=== PATIENT | male | born 1980 | race Caucasian/White ===

== ENCOUNTER → 2020-05-02 15:39 | Outpatient (BNVA) | payer OTHER, SELFPAY | PROVIDERS: Visit Provider Urology ==

== ENCOUNTER 2022-12-09 13:30 | Outpatient (AMB) | payer OTHER, SELFPAY ==
--- NOTE | 2022-12-09 13:32 | MHC.OFFWIV ---
Intake Vital Signs 12/09/22 13:33 Height 6 ft Weight 214 lb 6 oz BMI 29.1 BP 126/76 Blood Pressure Location Rt brachial Position Sitting Pulse 62 Pulse Source Pulse Oximeter Pulse Oximetry (%) 97 Oxygen Delivery Method Room Air Intake Visit Reasons: congestion,blocked ear Intake Note: Patient is here with head congestion, blocked ears for about a month. Patient Tobacco Use Status: Never used Tobacco Allergies No Known Allergies Allergy (Verified 12/09/22 13:35) Do you need a note to return to daycare/school/sports/work: Yes HPI congestion,blocked ear HPI Details Nasal?congestion?and?ear?congestion?for?about?a?month. Had?tried?Zyrtec?which?had?helped?but?he?ran?out?of?it Had?congestion?got?worse?and?he?ended?up?having?some?right?ear?pain.??This?has?resolved Still?has?significant?nasal?congestion.??No?sore?throat.??No?fevers?or?chills. [facility] Social History Patient Tobacco Use Status: Never used Tobacco Review of Systems Const Denies chills, Denies fatigue, Denies fever(s), Denies headache(s) and Denies weakness ENT Details: Nasal?congestion Mild?decreased?hearing?on?the?right?but?no?pain?anymore Denies dizziness and Denies headache(s) Card Denies chest pain, Denies lightheadedness, Denies dyspnea and Denies other (Palpitations) Resp Denies cough, Denies dyspnea, Denies wheezing and Denies other ( shortness of breath) Musc Denies numbness and Denies tingling Neuro Denies dizziness, Denies headache(s), Denies numbness, Denies tingling, Denies paresthesias and Denies weakness Psych Denies anxiety and Denies depression Endo Denies fatigue Aller/Immun Denies wheezing Physical Exam Vital Signs: Last Vital Signs Pulse 62 12/09/22 13:33 BP 126/76 12/09/22 13:33 Pulse Ox 97 12/09/22 13:33 Oxygen Delivery Method Room Air 12/09/22 13:33 BMI result Body Mass Index 29.1 Const General: no acute distress and well developed Nutritional Appearance: well nourished Orientation/consciousness: patient oriented x3 HEENT Other: Nasal?congestion.??Mild?discharge. No?sinus?TTP Right?TM?with?mild?sclerosis?but?no?fluid?and?no?erythema. Left?TM?normal Posterior?nasopharynx?normal Head: Yes normocephalic and Yes atraumatic Eyes General: appearance normal, both eyes and all related structures Pupils: Equal, round and reactive pupils present EOM: EOMs intact bilaterally Resp Effort & Inspection: normal respiratory effort Auscultation: clear to auscultation bilaterally Cardio Rate: regular rate Rhythm: regular rhythm Heart sounds: S1 normal heart sound present, S2 normal heart sound present, no gallops, no murmurs and no rubs Neuro General: patient oriented x3 and gait normal Cranial nerves: Yes Equal, round and reactive pupils present Psych Affect: normal affect Assessment & Plan Assessment & Plan (1) Allergic sinusitis: Code(s): J30.9 - Allergic rhinitis, unspecified Plan: Allergic?sinusitis. Likely?has?had?a?resolved?right?ear?infection?and?should?improve If?hearing?does?not?improve?he?can?return?to?office Resume?Zyrtec Trial?nasal?steroid Can?use?pseudoephedrine?for?severe?flare-up Medications: New fluticasone propionate 50 mcg/actuation (Flonase Allergy Relief) administer into each nostril 1 spray intranasal Q12H 16 grams 2RF 30 days cetirizine (All Day Allergy (cetirizine)) 10 mg PO DAILY PRN 30 tabs 1RF allergy symptoms 30 days Coding Level of Care Code Est Pt Level 3 (16990) Diagnoses Allergic sinusitis J30.9
[2022-12-09 13:33] VITALS: BP 126/76; PULSE 62; O2SAT 97; BMI 29.1
== END 2022-12-09 14:00 | disposition home or self-care (01) ==
PROVIDERS: Visit Provider Family Medicine
DX: J30.9 Allergic rhinitis, unspecified (principal)
CPT/HCPCS: 99213

== ENCOUNTER 2023-02-04 15:44 | Outpatient (AMB) | payer OTHER, SELFPAY ==
--- NOTE | 2023-02-04 15:49 | A.OFFPC_ITS ---
Vital Signs 02/04/23 15:53 Height 6 ft Weight 215 lb BMI 29.2 BP 120/80 Blood Pressure Location Rt brachial Position Sitting Pulse 57 Pulse Source Pulse Oximeter Pulse Oximetry (%) 97 Oxygen Delivery Method Room Air Intake Visit Reasons: Annual PE Intake Note: Patient here for physical exam. No new issues or concerns. Allergies No Known Allergies Allergy (Verified 02/04/23 15:54) Medication List - Last Reconciled 02/04/23 by MISHEL PickettLUZ ELENA sertraline 50 mg PO DAILY Tobacco use date assessed: 02/04/23 Dental Screening Dental Screen Date: 02/04/23 Did you have a dental visit in the last 12 months?: Yes Did you have a dental problem in the last 6 months where you did not have access to dental care?: No Was dental information given to patient?: Patient has dentist HPI Annual PE HPI Details New pt is here for a PE. Will order labs. Pt has a significant family hx of prostate cancer. Will order PSA. Denies any symptoms including dribbling with urination, weak stream, and frequent nocturia. Has not seen a provider in approx 12 years [facility] Social History Housing: Apartment Patient Tobacco Use Status: Never used Tobacco e-Cigarette/Vaping Use: Never Used service: No Current occupational status: employed Current occupational exposures/hazards: Yes Cognitive needs: No Hearing needs: No Vision needs: No Questionnaire PHQ-9 Over the last 2 weeks, how often have you been bothered by any of the following problems? 1. Little interest or pleasure in doing things: not at all 2. Feeling down, depressed, or hopeless: not at all 3. Trouble falling or staying asleep, or sleeping too much: not at all 4. Feeling tired or having little energy: not at all 5. Poor appetite or overeating: not at all 6. Feeling bad about yourself - or that you are a failure or have let yourself or your family down: not at all 7. Trouble concentrating on things, such as reading the newspaper or watching television: not at all 8. Moving or speaking so slowly that other people could have noticed. Or the opposite - being so fidgety or restless that you have been moving around a lot more than usual: not at all 9. Thoughts that you would be better off or of hurting yourself in some way: not at all Total score: 0 Depression Screening Interpretation: Negative Depression Screening Done: Yes 24685 - PHQ-9 Billing: Yes Source: Developed by Drs. Glen Carlisle, Carola Muse, Ruben Carroll and colleagues, with an educational isiah from [employer]. Thrive Questionnaire Date Thrive assessed: 02/04/23 I am a: Patient What is your living situation today?: I have a steady place to live Within the past 12 months, did the food you bought not last and you didn't have the money to get more?: Never true Within the past 12 months, did you worry whether your food would run out before you got money to buy more?: Never true Do you have trouble paying for medicines?: No Do you have trouble getting transportation to medical appointments?: No Do you have trouble paying your heating and electricity bill?: No Do you have trouble taking care of your child, family member or friend?: No Do you have trouble with day-to-day activities such as bathing, preparing meals, shopping, managing finances, etc.?: No Are you currently unemployed and looking for a job?: No Are you interested in more education?: No Currently or been in a relationship where the following occur: no concerns reported AUDIT C Alcohol Use Questionnaire (AUDIT-C) 1. How often do you have a drink containing alcohol?: 2-3 times a week 2. How many drinks containing alcohol do you have on a typical day when you are drinking?: 1 or 2 3. How often do you have six or more drinks on one occasion?: Never Total Score: 3 Score Reviewed/Action Taken: No CHERELLE-7 AMB Questionnaire CHERELLE-7 Date CHERELLE - 7 assessed: 02/04/23 Feeling nervous, anxious, or on edge: 1 = Several days Not being able to stop or control worryin = Not at all Worrying too much about different things: 0 = Not at all Trouble relaxin = Not at all Being so restless that it is hard to sit still: 0 = Not at all Becoming easily annoyed or irritable: 0 = Not at all Feeling afraid as if something awful might happen: 0 = Not at all Total CHERELLE-7 score (0-4 normal; 5-9 mild; 10-14 moderate; 15-21 severe): 1 Source: Developed by Drs. Glen Carlisle, Carola Muse, Ruben Carroll and colleagues, with an educational isiah from [employer]. CHERELLE-7 Assessment Billing CHERELLE-7 Assessment Tool: CHERELLE-7 Assessment 21141 Review of Systems Const Denies chills and Denies fever(s) Eyes Denies blurry vision ENT Denies vertigo, Denies dizziness and Denies sore throat Card Denies chest pain at rest, Denies chest pain with activity, Denies diaphoresis, Denies dyspnea and Denies dyspnea on exertion Resp Denies cough, Denies dyspnea, Denies dyspnea on exertion and Denies wheezing GI Denies abdominal pain, Denies melena, Denies hematochezia, Denies constipation, Denies diarrhea and Denies loose stools Denies hematuria Musc Denies numbness and Denies tingling Skin/Breast Denies lesions Neuro Denies vertigo, Denies dizziness, Denies numbness and Denies tingling Psych Denies anxiety, Denies depression, Denies homicidal ideation, Denies suicidal ideation and Denies other (substance abuse) Aller/Immun Denies wheezing Physical exam (Primary Care) Vital Signs: Last Vital Signs Pulse 57 02/04/23 15:53 BP 120/80 02/04/23 15:53 Pulse Ox 97 02/04/23 15:53 Oxygen Delivery Method Room Air 02/04/23 15:53 BMI result Body Mass Index 29.2 Tobacco/Smoking Status: Tobacco use Status Tobacco use date assessed 02/04/23 02/04/23 15:57 Patient Tobacco Use Status Never used Tobacco 02/04/23 15:50 e-Cigarette/Vaping Use Never Used 02/04/23 15:57 PHQ-9: PHQ-9 Score PHQ-9: Total score 0 02/04/23 16:41 Depression Screening Interpretation: Negative Thrive Assessment: Date of Thrive Assessment Date Thrive assessed 02/04/23 02/04/23 16:41 Currently or been in a relationship where the following occur: no concerns reported Const General: cooperative Nutritional Appearance: well nourished Orientation/consciousness: patient oriented x3 HENMT Head: Yes normal to inspection, Yes normocephalic and Yes atraumatic Ears: TM's normal bilaterally Eyes General: appearance normal, both eyes and all related structures Alignment and Position: alignment normal and position normal Neck Neck: Yes normal visual inspection and Yes no lymphadenopathy Thyroid: Thyroid normal Resp Effort & Inspection: normal respiratory effort Auscultation: clear to auscultation bilaterally Cardio Rate: regular rate Rhythm: regular rhythm Heart sounds: S1 normal heart sound present, S2 normal heart sound present and no murmurs GI Palpation (GI): Soft to palpation and nontender Auscultation: normal bowel sounds Male General Exam: Yes normal external exam Penis: normal penis Scrotum: scrotum normal, testes descended bilaterally and no inguinal hernias Testes: no testicular mass Skin Rashes: no rashes Neuro General: patient oriented x3, moves all extremities, no focal motor deficits and deep tendon reflexes 2+ bilaterally Romberg Test: Negative Psych Appearance: grossly normal Mental Status: mental status grossly normal Speech and movement: Normal speech and movement present Affect: normal affect Attitude: cooperative Thought process: Normal thought process present Thought content: Normal thought content present Insight: Good insight present (Psych) Judgement: Good judgement present (Psych) Assessment and Plan Assessment & Plan (1) Physical exam: Code(s): Z00.00 - Encounter for general adult medical examination without abnormal findings Plan: Labs ordered (2) Family hx of prostate cancer: Code(s): Z80.42 - Family history of malignant neoplasm of prostate Plan: PSA ordered Plan The patient agreed to the use of a clinical medical assistant for this encounter. Scribed for KIET Garzon by America Saenz clinical medical assistant, on 02/04/2023 at 16:00 EST. Orders: Orders TSH reflex Free T4 Today Z00.00 - Encounter for general adult medical examination without abnormal findings Complete Blood Count Auto Diff Today Z00.00 - Encounter for general adult medical examination without abnormal findings Comprehensive [place]. Panel Fast Today Z00.00 - Encounter for general adult medical examination without abnormal findings UA CC w/rflx Micro + Cult Today Z00.00 - Encounter for general adult medical examination without abnormal findings Lipid Panel Today Z00.00 - Encounter for general adult medical examination without abnormal findings Prostate Specific Antigen Scr Today Z80.42 - Family history of malignant neoplasm of prostate Medications: Changed From sertraline 50 mg PO DAILY To sertraline 50 mg PO DAILY 90 tabs 0RF 90 days Coding Level of Care Code New Pt Prev Care 40-64y(77730) Diagnoses Physical exam Z00.00 Family hx of prostate cancer Z80.42 Additional Codes CHERELLE-7 Assessment Billing - CHERELLE-7 Assessment Tool: CHERELLE-7 Assessment 74145 ([id number])
[2023-02-04 15:53] VITALS: BP 120/80; PULSE 57; O2SAT 97; BMI 29.2
== END 2023-02-04 16:56 | disposition home or self-care (01) ==
PROVIDERS: Visit Provider Nurse Practitioner Family
DX: Z00.00 Encounter for general adult medical examination without abnormal findings (principal); Z80.42 Family history of malignant neoplasm of prostate
CPT/HCPCS: 99386

== ENCOUNTER 2023-03-11 11:12 | Outpatient (REF) | payer OTHER, SELFPAY ==
[2023-03-11 14:23] LABS: MANUAL DIFF FLAG NO
[2023-03-11 14:25] LABS: Appearance Urine Clear; Color Urine Yellow; Glucose Urine UA Negative (Negative); Leukocyte Esterase Urine Negative (Negative); Nitrite Urine Negative (Negative); PH 5.5 (5.0-9.0); Specific Gravity - Urine 1.015 (1.005-1.025); Urine Blood Negative (Negative); Urine Ketones Negative (Negative); Urine Protein Negative (Neg-Trace)
[2023-03-11 14:33] LABS: Basophils Percent Auto 0.6 % (0-2); Eosinophils Absolute Auto 0.2 X10*3/uL (0.0-0.4); Eosinophils Percent Auto 4.8 % (0-4); Hematocrit 44.2 % (42.0-52.0); Hemoglobin 14.9 g/dl (14.0-18.0); Imm Gran Abs Auto 0.01 X10*3/uL (0.00-0.03); Imm Gran Pct Auto 0.2 % (0.0-0.4); Lymphocytes Absolute Auto 1.8 X10*3/uL (1.2-4.9); Mean Corpuscular HGB Conc 33.7 g/dl (31.0-36.0); Mean Corpuscular Hemoglobin 29.7 pg (27.0-33.0); Mean Platelet Volume 11.1 fL (9.4-12.4); Monocytes Absolute Auto 0.4 X10*3/uL (0.1-1.2); Monocytes Percent Auto 7.5 % (2-11); Neutrophils Absolute Auto 2.4 x10*3/uL (2.0-8.3); Neutrophils Percent Auto 49.9 % (45-73); Platelet Count 174 X10*3/uL (160-400); Red Blood Count 5.02 X10*6/uL (4.60-5.80); Red Cell Distribution Width 11.9 % (11.0-16.0); White Blood Count 4.8 X10*3/uL (4.8-10.8)
[2023-03-11 14:49] LABS: Alanine Aminotransferase 19 U/L (0-40); Albumin Level 4.3 g/dL (3.5-5.0); Alkaline Phosphatase 52 U/L (39-117); Anion Gap 13 (12-20); Aspartate Amino Transferase 20 U/L (5-37); Bilirubin Total 0.5 mg/dL (0.0-1.0); Blood Urea Nitrogen 21 mg/dL (9-16); Calcium 9.3 mg/dL (8.4-10.2); Carbon Dioxide 26 mmol/L (22-29); Chloride 104 mmol/L (96-108); Cholesterol 222 mg/dL (<200); Estimated Glomerular Filt Rate > 60; Glucose Fasting 96 mg/dL (60-99); HDL Cholesterol 57 mg/dL (>40); LDL Cholesterol Calculated 143 mg/dL (<100); Potassium 3.9 mmol/L (3.3-5.1); Sodium 139 mmol/L (135-145); Total Protein 7.5 g/dL (6.5-8.0); Triglycerides 110 mg/dL (<150)
[2023-03-11 14:56] LABS: Prostate Specific Antigen Scr 0.68 ng/mL (<0.05-4.0)
[2023-03-11 15:06] LABS: TSH reflex Free T4 1.22 uIU/mL (0.32-4.0)
== END 2023-03-11 11:13 | disposition home or self-care (01) ==
LOC: HO.WFDLDS 11:12
PROVIDERS: Visit Provider Nurse Practitioner Family
DX: Z00.00 Encounter for general adult medical examination without abnormal findings (principal); Z12.5 Encounter for screening for malignant neoplasm of prostate; Z80.42 Family history of malignant neoplasm of prostate
CPT/HCPCS: 36415; 80053; 80061; 81003; 84153; 84443; 85025

== ENCOUNTER 2024-04-06 13:38 | Outpatient (REF) | payer OTHER, SELFPAY ==
--- NOTE | ~2024-04-06 | XR_ITS ---
CLINICAL HISTORY: R05.9 - Cough, unspecified Chest two-view Comparison: None Findings: Clear lungs. No consolidation, venous distention, pulmonary edema, pleural effusion or pneumothorax. Normal heart size and mediastinal contour. Bones, soft tissues and upper abdomen are unremarkable. IMPRESSION: No acute cardiopulmonary process. This document has been electronically signed by: Taz Swann MD on 04/08/2024 08:45:09
[2024-04-07 10:40] LABS: Adenovirus PCR Not Detected (Not Detect.); Bordetella parapertussis PCR Not Detected (Not Detect.); Bordetella pertussis PCR Not Detected (Not Detect.); Chlamydia pneumoniae PCR Not Detected (Not Detect.); Coronavirus 229E PCR Not Detected (Not Detect.); Coronavirus HKU1 PCR Not Detected (Not Detect.); Coronavirus NL63 PCR Not Detected (Not Detect.); Coronavirus OC43 PCR Not Detected (Not Detect.); Human metapneumovirus PCR Not Detected (Not Detect.); Influenza A PCR Not Detected (Not Detect.); Influenza B PCR Detected (Not Detect.); Mycoplasma pneumoniae PCR Not Detected (Not Detect.); Parainfluenza 1 PCR Not Detected (Not Detect.); Parainfluenza 2 PCR Not Detected (Not Detect.); Parainfluenza 3 PCR Not Detected (Not Detect.); Parainfluenza 4 PCR Not Detected (Not Detect.); RSV PCR Not Detected (Not Detect.); Rhino/Enterovirus PCR Not Detected (Not Detect.); SARS-CoV-2 PCR Not Detected (Not Detect.)
== END 2024-04-06 13:39 | disposition home or self-care (01) ==
LOC: HO.HMGCX 13:38
PROVIDERS: PCP Nurse Practitioner Family; Visit Provider Nurse Practitioner Family
DX: Z00.01 Encounter for general adult medical examination with abnormal findings (principal); H61.21 Impacted cerumen, right ear; R05.9 Cough, unspecified; Z80.42 Family history of malignant neoplasm of prostate
CPT/HCPCS: 69209; 71046; 87633

== ENCOUNTER 2024-04-06 13:38 | Outpatient (AMB) | payer OTHER, SELFPAY ==
--- NOTE | 2024-04-06 13:39 | MHC.PC.OV ---
Vital Signs 04/06/24 13:42 Height 5 ft 11 in Weight 217 lb BMI 30.3 BP 132/84 Blood Pressure Location Rt brachial Position Sitting Respiration 16 Pulse 69 Pulse Source Pulse Oximeter Temp 98.0 F Temp Source Oral Pulse Oximetry (%) 96 Oxygen Delivery Method Room Air Intake Visit Reasons: PE Intake Note: Pt is here today for his PE Allergies No Known Allergies Allergy (Verified 04/06/24 13:40) Medication List - Last Reconciled 04/06/24 by MISHEL Pickett-LUZ ELENA sertraline 50 mg PO DAILY 90 days Tobacco use date assessed: 04/06/24 Dental Screening Dental Screen Date: 04/06/24 Did you have a dental visit in the last 12 months?: Yes Did you have a dental problem in the last 6 months where you did not have access to dental care?: No Was dental information given to patient?: Patient has dentist HPI PE HPI Details History of Present Illness The patient is a 43-year-old male presenting with a cough. The patient reports experiencing chills approximately three days ago, which preceded the onset of a cough that began yesterday. The patient denies nausea, vomiting, diarrhea, chest pain, shortness of breath, or urinary problems. The patient has a family history of prostate cancer on the paternal side, with an affected uncle. The patient declined a digital rectal examination during the visit. There is no reported progression of symptoms or prior interventions related to the current cough. Health Maintenance - A family history of prostate cancer was noted, and consideration for prostate-specific antigen (PSA) screening was planned. Social History Review of Systems - Respiratory: Reports a cough that began yesterday and chills that started three days ago. Physical Exam General: Cooperative, healthy appearing, comfortable, no acute distress and well developed Orientation: Patient oriented x3 Limitations: No limitations Head: Normal to inspection Ears: Right ear with cerumen noted. After ear lavage, TM easily seen Nose: Normal external nose present Face and sinus: Normal facial exam Eyes: Appearance normal, both eyes and all related structures Neck: Normal visual inspection and Yes full ROM Respiratory: Lungs were fairly clear. Normal respiratory effort and able to speak in complete sentences. Clear to auscultation bilaterally Cardiovascular: Regular rate and rhythm. Normal S1 and S2 GI: Normal to inspection. Soft to palpation and nontender Skin: No rashes or lesions noted Neuro: Patient oriented x3 Extremities: Normal to inspection Results Plan - Perform a respiratory swab to investigate the cause of the upper respiratory symptoms. - Order a PSA test due to the family history of prostate cancer. Discussion Notes The patient and I discussed the importance of PSA screening given his family history of prostate cancer. We deliberated on the potential risks and benefits of the screening. The patient was informed about the decision to collect a respiratory swab for further evaluation of his cough and to confirm any underlying infection. The refusal of the digital rectal exam was acknowledged. Home care and self-monitoring instructions were communicated, emphasizing return precaution if symptoms worsen. Patient Instructions [facility] Social History Housing: Apartment Patient Tobacco Use Status: Never used Tobacco e-Cigarette/Vaping Use: Never Used service: No Current occupational status: employed Current occupational exposures/hazards: Yes Cognitive needs: No Hearing needs: No Vision needs: No Questionnaire PHQ-9 Over the last 2 weeks, how often have you been bothered by any of the following problems? 1. Little interest or pleasure in doing things: not at all 2. Feeling down, depressed, or hopeless: not at all 3. Trouble falling or staying asleep, or sleeping too much: not at all 4. Feeling tired or having little energy: several days 5. Poor appetite or overeating: not at all 6. Feeling bad about yourself - or that you are a failure or have let yourself or your family down: not at all 7. Trouble concentrating on things, such as reading the newspaper or watching television: not at all 8. Moving or speaking so slowly that other people could have noticed. Or the opposite - being so fidgety or restless that you have been moving around a lot more than usual: not at all 9. Thoughts that you would be better off or of hurting yourself in some way: not at all Total score: 1 Source: Developed by Drs. Glen Carlisle, Carola Muse, Ruben Carroll and colleagues, with an educational isiah from [employer]. Thrive Questionnaire Date Thrive assessed: 03/30/24 I am a: Patient What is your living situation today?: I have a steady place to live Within the past 12 months, did the food you bought not last and you didn't have the money to get more?: Never true Within the past 12 months, did you worry whether your food would run out before you got money to buy more?: Never true Do you have trouble paying for medicines?: No Do you have trouble getting transportation to medical appointments?: No Do you have trouble paying your heating and electricity bill?: No Do you have trouble taking care of your child, family member or friend?: No Do you have trouble with day-to-day activities such as bathing, preparing meals, shopping, managing finances, etc.?: No Are you currently unemployed and looking for a job?: No Are you interested in more education?: No Please select the resources that you would like help with: None Currently or been in a relationship where the following occur: No concerns reported THRIVE Score: 0 AUDIT C Alcohol Use Questionnaire (AUDIT-C) 1. How often do you have a drink containing alcohol?: 2-3 times a week 2. How many drinks containing alcohol do you have on a typical day when you are drinking?: 1 or 2 3. How often do you have six or more drinks on one occasion?: Less than monthly Total Score: 4 CHERELLE-7 AMB Questionnaire CHERELLE-7 Date CHERELLE - 7 assessed: 04/06/24 Feeling nervous, anxious, or on edge: 1 = Several days Not being able to stop or control worryin = Not at all Worrying too much about different things: 0 = Not at all Trouble relaxin = Not at all Being so restless that it is hard to sit still: 0 = Not at all Becoming easily annoyed or irritable: 1 = Several days Feeling afraid as if something awful might happen: 0 = Not at all Total CHERELLE-7 score (0-4 normal; 5-9 mild; 10-14 moderate; 15-21 severe): 2 Source: Developed by Drs. Glen Carlisle, Carola Muse, Ruben Carroll and colleagues, with an educational isiah from [employer]. Physical exam (Primary Care) Vital Signs: Last Vital Signs Temp 98.0 F 04/06/24 13:42 Pulse 69 04/06/24 13:42 Resp 16 04/06/24 13:42 BP 132/84 04/06/24 13:42 Pulse Ox 96 04/06/24 13:42 Oxygen Delivery Method Room Air 04/06/24 13:42 BMI result Body Mass Index 30.3 Tobacco/Smoking Status: Tobacco use Status Tobacco use date assessed 04/06/24 04/06/24 13:44 Patient Tobacco Use Status Never used Tobacco 04/06/24 13:44 e-Cigarette/Vaping Use Never Used 04/06/24 13:44 PHQ-9: PHQ-9 Score PHQ-9: Total score 1 04/06/24 13:44 Thrive Assessment: Date of Thrive Assessment Date Thrive assessed 03/30/24 04/06/24 13:44 Currently or been in a relationship where the following occur: No concerns reported Office Procedures Cerumen Removal From which ear canal was the cerumen removed: right Removal: irrigation Notes: patient tolerated procedure well, no complications and ear canal clear [id number] Irrigation/Lavage Coding Level of Care Code Est Pt Prev Care 40-64y(10587) Diagnoses Physical exam Z00.00 Family hx of prostate cancer Z80.42 Cough R05.9 Cerumen impaction H61.20 CPT Codes Office Procedure - CPT: 10226-Iwe Irrigation/Lavage ([id number]) Assessment & Plan Assessment & Plan (1) Physical exam: Code(s): Z00.00 - Encounter for general adult medical examination without abnormal findings Category: Medical (2) Family hx of prostate cancer: Code(s): Z80.42 - Family history of malignant neoplasm of prostate Category: Medical (3) Cough: Code(s): R05.9 - Cough, unspecified Category: Medical (4) Cerumen impaction: Code(s): H61.20 - Impacted cerumen, unspecified ear Category: Medical Plan . Orders: Orders Complete Blood Count Auto Diff Today Z00.00 - Encounter for general adult medical examination without abnormal findings Comprehensive [place]. Panel Fast Today Z00.00 - Encounter for general adult medical examination without abnormal findings UA CC w/rflx Micro + Cult Today Z00.00 - Encounter for general adult medical examination without abnormal findings Prostate Specific Antigen Scr Today Z80.42 - Family history of malignant neoplasm of prostate Resp Pathogen Panel - [facility] [place] Today R05.9 - Cough, unspecified TSH reflex Free T4 Today Z00.00 - Encounter for general adult medical examination without abnormal findings Lipid Panel Today Z00.00 - Encounter for general adult medical examination without abnormal findings XR chest 2V Today R05.9 - Cough, unspecified
[2024-04-06 13:42] VITALS: BP 132/84; PULSE 69; RESP 16; TEMP 36.7; O2SAT 96; BMI 30.3
== END 2024-04-06 14:21 | disposition home or self-care (01) ==
PROVIDERS: Visit Provider Nurse Practitioner Family
DX: Z00.00 Encounter for general adult medical examination without abnormal findings (principal); Z80.42 Family history of malignant neoplasm of prostate; R05.9 Cough, unspecified; H61.21 Impacted cerumen, right ear

== ENCOUNTER → 2024-04-06 14:36 | Outpatient (BNV) | payer OTHER, SELFPAY | PROVIDERS: PCP Nurse Practitioner Family; Visit Provider Radiology Diagnostic Radiology | DX: R05.9 Cough, unspecified (principal) | CPT/HCPCS: 71046 ==

== ENCOUNTER 2024-05-18 08:26 | Outpatient (REF) | payer OTHER, SELFPAY ==
[2024-05-18 09:05] LABS: MANUAL DIFF FLAG NO
[2024-05-18 09:14] LABS: Basophils Percent Auto 0.6 % (0-2); Eosinophils Absolute Auto 0.3 X10*3/uL (0.0-0.4); Eosinophils Percent Auto 5.3 % (0-4); Hematocrit 44.8 % (42.0-52.0); Hemoglobin 14.8 g/dl (14.0-18.0); Imm Gran Abs Auto 0.02 X10*3/uL (0.00-0.03); Imm Gran Pct Auto 0.4 % (0.0-0.4); Lymphocytes Absolute Auto 1.7 X10*3/uL (1.2-4.9); Lymphocytes Percent Auto 35.6 % (20-40); Mean Corpuscular Hemoglobin 29.2 pg (27.0-33.0); Mean Corpuscular Volume 88.4 fL (80.0-98.0); Mean Platelet Volume 10.6 fL (9.4-12.4); Monocytes Absolute Auto 0.3 X10*3/uL (0.1-1.2); Neutrophils Absolute Auto 2.5 x10*3/uL (2.0-8.3); Neutrophils Percent Auto 51.1 % (45-73); Platelet Count 221 X10*3/uL (160-400); Red Blood Count 5.07 X10*6/uL (4.60-5.80); Red Cell Distribution Width 12.5 % (11.0-16.0); White Blood Count 4.9 X10*3/uL (4.8-10.8)
[2024-05-18 09:22] LABS: Appearance Urine Clear; Color Urine Yellow; Glucose Urine UA Negative (Negative); Leukocyte Esterase Urine Negative (Negative); Nitrite Urine Negative (Negative); PH 5.5 (5.0-9.0); Urine Blood Negative (Negative); Urine Ketones Negative (Negative); Urine Protein Negative (Neg-Trace)
[2024-05-18 09:44] LABS: Alanine Aminotransferase 48 U/L (0-40); Albumin Level 4.3 g/dL (3.5-5.0); Alkaline Phosphatase 57 U/L (39-117); Anion Gap 10 (12-20); Aspartate Amino Transferase 39 U/L (5-37); Bilirubin Total 0.4 mg/dL (0.0-1.0); Blood Urea Nitrogen 19 mg/dL (9-16); Calcium 9.1 mg/dL (8.4-10.2); Carbon Dioxide 25 mmol/L (22-29); Chloride 109 mmol/L (96-108); Cholesterol 156 mg/dL (<200); Estimated Glomerular Filt Rate > 60; Glucose Fasting 96 mg/dL (60-99); HDL Cholesterol 42 mg/dL (>40); LDL Cholesterol Calculated 101 mg/dL (<100); Potassium 4.1 mmol/L (3.3-5.1); Sodium 140 mmol/L (135-145); Triglycerides 66 mg/dL (<150)
[2024-05-18 09:59] LABS: Prostate Specific Antigen Scr 0.71 ng/mL (<0.05-4.0)
[2024-05-18 10:00] LABS: TSH reflex Free T4 1.32 uIU/mL (0.32-4.0)
== END 2024-05-18 08:27 | disposition home or self-care (01) ==
LOC: HO.WFDLDS 08:26
PROVIDERS: Visit Provider Nurse Practitioner Family
DX: Z00.00 Encounter for general adult medical examination without abnormal findings (principal); Z80.42 Family history of malignant neoplasm of prostate; Z12.5 Encounter for screening for malignant neoplasm of prostate
CPT/HCPCS: 36415; 80053; 80061; 81003; 84153; 84443; 85025

== ENCOUNTER 2024-06-22 07:44 | Outpatient (REF) | payer OTHER, SELFPAY ==
--- NOTE | ~2024-06-22 | US_ITS ---
CLINICAL HISTORY: R74.8 - Abnormal levels of other serum enzymes US abdomen complete Comparison: None Findings: Limited evaluation of the tail of the pancreas due to bowel gas. The aorta and inferior vena cava are normal caliber. The liver is normal in size and echotexture. There is no intrahepatic bile duct dilatation. The common duct is 3 mm in diameter. The gallbladder is normal. There is no sonographic Langston sign. The main portal vein is antegrade. There is mild right pelvocaliectasis and possible duplex collecting system. The right kidney is 12.5 cm in length. The left kidney is 11.7 cm in length. No hydronephrosis of the left kidney. No solid or cystic renal masses. The spleen is normal. No ascites. IMPRESSION: Normal gallbladder and liver Possible duplex right renal collecting system and mild right pelvocaliectasis, comparison to prior exams for stability recommended. If there is interval change or are no prior exams for stability CT abdomen and pelvis would be recommended to exclude obstructive uropathy This document has been electronically signed by: Glen Suazo MD on 06/23/2024 05:06:37
== END 2024-06-22 07:45 | disposition home or self-care (01) ==
LOC: HO.US 07:44
PROVIDERS: PCP Nurse Practitioner Family; Visit Provider Nurse Practitioner Family
DX: R74.8 Abnormal levels of other serum enzymes (principal)
CPT/HCPCS: 76700

== ENCOUNTER → 2024-06-22 07:45 | Outpatient (BNV) | payer OTHER, SELFPAY | PROVIDERS: PCP Nurse Practitioner Family; Visit Provider Radiology Diagnostic Radiology | DX: R74.8 Abnormal levels of other serum enzymes (principal) | CPT/HCPCS: 76700 ==

== ENCOUNTER 2024-06-22 08:14 | Outpatient (REF) | payer OTHER, SELFPAY ==
[2024-06-23 05:07] LABS: HBS Num1 0.62 mIU/mL (0-7.99); HBc Num1 0.06 S/CO (0.00-0.79); HBsAGNum1 0.35 S/CO (0.00-0.99); Hepatitis A Antibody IgM 0.13 Index (0-0.79); Hepatitis B Core Antibody Nonreactive (Nonreactive); Hepatitis B Surface Antigen Negative (Negative); ~HepC Num1 0.15 S/CO (0.00-0.79); ~Hepatitis A Antibody IgM Nonreactive (Nonreactive); ~Hepatitis B Surface Antibody NONREACTIVE (Nonreactive); ~Hepatitis C Antibody Nonreactive (Nonreactive)
== END 2024-06-22 08:15 | disposition home or self-care (01) ==
LOC: HO.10HDL 08:14
PROVIDERS: Visit Provider Nurse Practitioner Family
DX: R74.8 Abnormal levels of other serum enzymes (principal)
CPT/HCPCS: 36415; 86704; 86706; 86709; 86803; 87340

== ENCOUNTER 2024-08-01 16:40 | Outpatient (REF) | payer OTHER, SELFPAY ==
--- NOTE | ~2024-08-01 | CT_ITS ---
CLINICAL HISTORY: N13.9 - Obstructive and reflux uropathy, unspecified CT abdomen and pelvis without IV or oral contrast Comparison: US - US ABDOMEN COMPLETE - 06/22/24 07:52 EDT Findings: Lung bases show no active disease. No dependent layering pleural effusions. The heart is not enlarged. No nephroureterolithiasis demonstrated distal hydroureter is noted on the right the urinary bladder is decompressed. Evaluation of the liver, spleen, adrenal glands and pancreas demonstrates no lesions. It should be noted that isodense masses may be obscured in the absence of intravenous contrast. No radiopaque gallstones. Normal appendix. Diverticulosis coli. No pathologically enlarged lymph nodes . No ascites demonstrated. No prostatomegaly No vertebral body compression fractures or spondylolisthesis. No bony destructive lesions. Bone island right iliac bone Impression: 1. No nephroureterolithiasis. 2. Mild distal hydroureter on the right differentials include recently passed stone, reflux, pyelitis/pyonephrosis or uroepithelial lesion. CT urogram is therefore recommended. 3. Decompressed urinary bladder. Equivocal urinary bladder wall thickening/cystitis can be addressed with CT urogram as well additional delayed scans through the bladder may be needed once the bladder is fully distended and can be included as a single study. The prostate gland is nonenlarged. This document has been electronically signed by: Neno Kelley MD on 08/02/2024 11:02:11
== END 2024-08-01 16:41 | disposition home or self-care (01) ==
LOC: HO.CT 16:40
PROVIDERS: PCP Nurse Practitioner Family; Visit Provider Nurse Practitioner Family
DX: N13.9 Obstructive and reflux uropathy, unspecified (principal)
CPT/HCPCS: 74176

== ENCOUNTER → 2024-08-01 16:42 | Outpatient (BNV) | payer OTHER, SELFPAY | PROVIDERS: PCP Nurse Practitioner Family; Visit Provider Radiology Diagnostic Radiology | DX: N13.9 Obstructive and reflux uropathy, unspecified (principal) | CPT/HCPCS: 74176 ==

== ENCOUNTER 2024-09-19 15:52 | Outpatient (REF) | payer OTHER, SELFPAY ==
--- NOTE | ~2024-09-19 | CT_ITS ---
EXAMINATION: CT ABDOMEN AND PELVIS WITHOUT AND WITH CONTRAST CLINICAL INFORMATION: N13.9 - Obstructive and reflux uropathy, unspecified , prominent distal right ureter on previous CT COMPARISON: August 01, 2024 TECHNIQUE: Noncontrast CT of the abdomen and pelvis is performed followed by split bolus contrast-enhanced images using 85 mL Omnipaque 350 contrast. Postcontrast imaging is performed during the combined nephrogram and excretion phase. Sagittal and coronal reformatted images were obtained on the technologist's workstation for both the precontrast and postcontrast phases. This CT examination was performed using dose optimization techniques as appropriate, variously including the following: *Automated exposure control *Adjustment of mA and/or kV according to patient size (this includes techniques or standardized protocols for targeted exams where dose is matched to indication/reason for exam; i.e. extremities or head) *Use of iterative reconstruction technique DLP: 1143 mGY*cm FINDINGS: LUNG BASES: The visualized lung bases are unremarkable. LIVER, GALLBLADDER, AND BILIARY TREE: The liver is normal in size, shape, and attenuation. No focal hepatic lesion or biliary ductal dilatation is present. The gallbladder is unremarkable with no evidence of radiopaque gallstones, gallbladder wall thickening, or obvious pericholecystic inflammatory changes. PANCREAS: Unremarkable. SPLEEN: Unremarkable. ADRENAL GLANDS: Unremarkable. KIDNEYS AND URETERS: There are no stones. There is mild to moderate hydronephrosis with dilation of the right ureter leading to a ureterocele measuring 2.3 cm diameter. Left kidney and renal collecting system is unremarkable. BLADDER: Circular filling defect containing contrast isointense to the adjacent ureter is most consistent with a right ureterocele measures 2.3 cm diameter. GASTROINTESTINAL TRACT: The small and large bowel are unremarkable. The appendix is unremarkable. ABDOMINAL WALL: No significant hernia is appreciated. LYMPH NODES: Normal. VASCULAR: Unremarkable. PELVIC VISCERA: Unremarkable. OSSEUS STRUCTURES: Unremarkable. CT/CT urogram IMPRESSION: Moderate right hydronephrosis and dilated ureter leading to a 2.3 cm ureterocele. Electronically signed by: Brody Erickson MD 09/19/2024 05:15 PM EDT
[2024-09-19] MEDS: iohexoL 350 MG/ML 100 ML INFUS..BTL 85 ML IV (16:34)
== END 2024-09-19 15:53 | disposition home or self-care (01) ==
LOC: HO.CT 15:52
PROVIDERS: PCP Nurse Practitioner Family; Visit Provider Nurse Practitioner Family
DX: N13.9 Obstructive and reflux uropathy, unspecified (principal)
CPT/HCPCS: 74178; Q9967

== ENCOUNTER → 2024-09-19 15:53 | Outpatient (BNV) | payer OTHER, SELFPAY | PROVIDERS: PCP Nurse Practitioner Family; Visit Provider Radiology Diagnostic Radiology | DX: N13.39 Other hydronephrosis (principal) | CPT/HCPCS: 74178 ==

== ENCOUNTER 2024-09-29 14:28 | Outpatient (AMB) | payer OTHER, SELFPAY ==
--- NOTE | 2024-09-29 14:25 | A.OFFVIS_ITS ---
Intake Visit Reasons: hydrocele Intake Note: New Patient is present for hydrocele Urology Rx:none Blood Thinners:none Imaging completed: CT done 09/19/24 Labs done 05/18/2024: 1.32 Dental Ceramist Required: No Accompanied by: Self / Same As Patient Allergies No Known Allergies Allergy (Verified 09/29/24 14:26) HPI Comments Details: Marty is a pleasant male. He is a patient of Dr. Cisneros. He seen for following urologic conditions - ureterocele Incidental discovery after abdominal ultrasound for elevated liver enzymes Findings discussed today Recommend cystoscopy, right ureterocele incision with stent placement Risks and benefits discussed [facility] Medical History (Updated 09/19/24 @ 17:29 by Lissett Pino MD) Ureterocele Hydronephrosis due to obstruction of ureter Social History Housing: Apartment Patient Tobacco Use Status: Never used Tobacco e-Cigarette/Vaping Use: Never Used service: No Current occupational status: employed Current occupational exposures/hazards: Yes Cognitive needs: No Hearing needs: No Vision needs: No Review of Systems Const Denies chills and Denies fever(s) Card Reports no additional complaints and Denies syncope Resp Denies cough GI Denies abdominal pain and Denies heartburn Reports as per HPI and Denies change in libido Neuro Denies syncope Psych Denies change in libido Endo Denies change in libido Physical Exam Const General: cooperative, healthy appearing, comfortable and no acute distress Orientation/consciousness: patient oriented x3 HEENT Face and sinus: Yes normal facial exam Mouth: moist mucous membranes Neck Neck: Yes normal visual inspection, Yes full ROM and Yes trachea midline Chest Chest palpation & inspection: normal inspection of the chest Resp Effort & Inspection: normal respiratory effort, able to speak in complete sentences and no respiratory distress GI Inspection: Yes normal to inspection Back/Spine/Pelvis Cervical Spine: normal cervical lordosis Thoracic/Lumbar Spine: thoracic and lumbar spine normal to inspection Skin General skin exam: no rashes or lesions noted Neuro General: patient oriented x3, gait normal, tone normal and moves all extremities Extrem General: Yes normal to inspection and Yes capillary refill normal Assessment & Plan Assessment & Plan (1) Ureterocele: Code(s): N28.89 - Other specified disorders of kidney and ureter Category: Medical Plan Risks, benefits and alternatives to therapy were discussed. These include but are not limited to infection, bleeding, damage to local organs and tissues, need for further interventions. Anesthetic risks regarding cardiac arrhythmia, blood clots, and potential mortality were discussed. The patient understands the typical recovery time and the outpatient nature of the procedure. After consideration of these risks the patient gives full informed consent and they wish to move ahead with the procedure. - cystoscopy, right retrograde, right ureterocele incision with stent placement Orders: Orders AMB Urinalysis Automated Today Z13.9 - Encounter for screening, unspecified Patient Instructions: This note is constructed using voice recognition software. While every effort has been made to ensure accuracy printmaker errors may have been included. Imaging studies, laboratory and physical exam results were discussed and reviewed in detail. No major barriers to patient understanding were identified. An opportunity to ask questions regarding the treatment plan was provided. All questions were answered. The patient expressed understanding and agreement with the above treatment plan. The patient is aware they should contact our office by phone for worsening of their current condition or the appearance of new urologic symptoms. Compliance is encouraged with any medications and followup testing that is ordered. It is a privilege to participate in the urologic care of your patient. If you have any questions or concerns regarding treatment for the above conditions, or other urologic issues, please do not hesitate to contact me. The office telephone contact is [phone]. Sincerely, Dr Vince Cortez MD, [facility] - Urology Compassionate Specialist Care for the Genitourinary System Coding Level of Care Code New Pt Level 4 (68562) Diagnoses Ureterocele N28.89
== END 2024-09-29 15:01 | disposition home or self-care (01) ==
PROVIDERS: PCP Nurse Practitioner Family; Visit Provider Urology
DX: Z13.9 Encounter for screening, unspecified (principal); N28.89 Other specified disorders of kidney and ureter
CPT/HCPCS: 99204

== ENCOUNTER → 2024-09-29 14:28 | Outpatient (BNVA) | payer OTHER, SELFPAY | PROVIDERS: PCP Nurse Practitioner Family; Visit Provider Urology | DX: N28.89 Other specified disorders of kidney and ureter (principal) | CPT/HCPCS: 81003 ==